=== PATIENT | female | born 1990 | race Caucasian/White ===

== ENCOUNTER 2017-01-13 19:41 | Emergency (ER) | payer OTHER ==
[~2017-01-13] VITALS: Ht 175.3 cm; Wt 63.6 kg
[2017-01-13 19:45] VITALS: TEMP 97.4
[2017-01-13 21:09] LABS: BASO # 0.1 (0.0-0.2); BASO % 0.4 % (0.0-2.0); EOS # 0.2 (0.0-0.7); EOS % 1.9 % (0-4.0); GRAN # 9.8 (1.4-6.5); HEMATOCRIT 39.4 % (37.0-47.0); HEMOGLOBIN 13.6 g/dl (12.5-16.0); LYMPH % 15.6 % (20.0-51.0); MEAN CELL VOLUME 88 fl (80.0-100.0); MEAN CORPUSCULAR HEMOGLOBIN 30 pg (27.0-31.0); MEAN CORPUSCULAR HGB CONC 35 g/dl (33.0-37.0); MEAN PLATELET VOLUME 9.8 fl (7.4-10.4); MONO # 0.6 (0.1-0.6); MONO % 4.5 % (1.7-9.3); PLATELET COUNT 283 K/mm3 (130-400); RED BLOOD COUNT 4.49 M/mm3 (4.10-5.30); REDCELL DISTRIBUTION WIDTH-CV 12.1 % (11.5-14.5); WHITE BLOOD COUNT 12.7 K/mm3 (4.8-10.8)
[2017-01-13 21:37] LABS: ADJUSTED CALCIUM 9.8 mg/dL (8.4-10.2); ALBUMIN 4.2 gm/dL (3.5-5.0); BILIRUBIN,TOTAL 0.7 mg/dL (0.0-1.0); CREATININE, serum 0.61 mg/dL (0.52-1.25); POTASSIUM 3.7 mmol/L (3.4-5.0); TOTAL PROTEIN 7.6 gm/dL (6.4-8.2)
[2017-01-13 21:57] LABS: PH 5 (5-8); URINE APPEARANCE Hazy; URINE BACTERIA Rare /hpf; URINE BILIRUBIN Negative (NEGATIVE); URINE BLOOD Negative (NEGATIVE); URINE COLOR Yellow; URINE GLUCOSE Negative (NEGATIVE); URINE KETONE Trace (NEGATIVE); URINE RBC 0-2 /hpf; URINE UROBILINOGEN Negative (NEGATIVE); URINE WBC 0-2 /hpf
[2017-01-13] MEDS ORDERED: ZOFRAN ODT4 MG PO (22:22)
[2017-01-13 22:58] VITALS: BP 113/63; PULSE 62
== END 2017-01-13 23:01 | disposition home or self-care (01) ==
LOC: COL.ER 19:41
PROVIDERS: Family Medicine
DX: K52.9 Noninfective gastroenteritis and colitis, unspecified (principal); Z90.49 Acquired absence of other specified parts of digestive tract; Z98.0 Intestinal bypass and anastomosis status
CPT/HCPCS: J1170; J2405; J7030; Q9967

== ENCOUNTER → 2017-02-19 | Outpatient (CLI) | payer OTHER ==
[~2017-02-19] MED LIST: ZOFRAN ODT4 MG PO
== END ==
LOC: COL.RAD 08:10
DX: N83.291 Other ovarian cyst, right side (principal)

== ENCOUNTER → 2017-08-02 | Outpatient (CLI) | payer OTHER | LOC: COL.VAS 13:34 | DX: R00.2 Palpitations (principal) ==

== ENCOUNTER 2023-02-14 09:55 | Inpatient (IN) | payer BC ==
[~2023-02-14] VITALS: Ht 175.3 cm; Wt 89.5 kg
[2023-02-14] VITALS (11 sets, daily range): BP systolic 110–122; BP diastolic 56–81; PULSE 62–110; TEMP 97.8–97.9
--- NOTE | 2023-02-14 10:30 | NUR ---
1000- Pt arrives on unit via wheelchair with hasband. Complaints of UCs every 3 mins and SROM at 0745. Pt in her own delivery gown, into bed, knee/chest per Pt comfort. Pt encouraged to roll onto back to place monitors and SVE. Pt agrees. 1004- EFM and TOCO on and tracing. 1008- SVE 9-/+1. Dr Jackson on unit but on phone call with Pt. ROMARIO May student updated to let MD know of Pt status and to come to bedside when off phone. 1010- Pt returns to knee/chest for comfort. This RN returns to bedside. Pt feeling pushy with UCs. Dr Jackson updated. 1020- MD at bedside with ROMARIO May student. Baron attempts IV start, able to obtain blood but would not flush. MD ok with IM [place] after delivery. Pt coached and encouraged to push with UCs, remains in knee/chest.
--- NOTE | 2023-02-14 10:45 | NUR ---
FHR tracing intermittently due to maternal position. MD remains at bedside evaluating tracing.
--- NOTE | 2023-02-14 11:15 | NUR ---
1047- Pt repositioned to RL, continues pushing in this position. MD remains at bedside, evaluates tracing. 1105- Pt repositioned to lithotomy position. Pt continues pushing.
--- NOTE | 2023-02-14 11:25 | NUR ---
FHR not tracing well, tracing intermittently, this RN attempts to reposition US in between pushing. Pt unblocked and feeling lots of pressure, pushing frequently. 1125- of viable female , to mother's abd, tended to by Mirta Eubanks, nursery RN. Cord clamped and cut after delay. Infant repositioned [id number] with mother. 1129- Spont delivery of placenta, Pitocin given IM, see EMAR. Fundus massaged by MD. Repair by MD, Pt very uncomfortable with repair but tolerated well. Pericare completed. Clean chux and ice pack to perineum. Pt [id number] with .
[2023-02-14] MEDS ORDERED: GLUCOPHAGE500 MG/TAB PO (12:37)
[2023-02-14] MEDS ORDERED: ZYRTEC ALLERGY10 MG PO (12:37)
[2023-02-14] MEDS ORDERED: PEPCID 20MG TAB20 MG PO (12:38)
[2023-02-14] MEDS ORDERED: PRENATAL TABLET PO (12:38)
[2023-02-14 13:05] LABS: BASO % 0.2 % (0.0-2.0); EOS % 0.2 % (0.0-4.0); GRAN # 7.8 K/mm3 (1.4-6.5); HEMOGLOBIN 10.8 g/dl (12.5-16.0); LYMPH # 1.5 K/mm3 (1.2-3.4); LYMPH % 14.9 % (20.0-51.0); MEAN CELL VOLUME 79 fl (80.0-100.0); MEAN CORPUSCULAR HEMOGLOBIN 25 pg (27-31); MEAN CORPUSCULAR HGB CONC 32 g/dl (33.0-37.0); MEAN PLATELET VOLUME 11.3 fl (7.4-10.4); MONO # 0.4 K/mm3 (0.1-0.6); MONO % 4.2 % (1.7-9.3); PLATELET COUNT 253 K/mm3 (130-400); RED BLOOD COUNT 4.25 M/mm3 (4.10-5.30); REDCELL DISTRIBUTION WIDTH-CV 14.6 % (11.5-14.5)
[2023-02-14 13:06] LABS: HEMATOCRIT 33.6 % (37.0-47.0)
--- NOTE | 2023-02-14 14:30 | NUR ---
1430- Pt ambulates to bathroom independently with this RN standby. Voids without difficulty. Pericare provided and explained. Pt ambulates to PP room, oriented to room. Call light within reach.
--- NOTE | 2023-02-14 18:25 | NUR ---
Report recieved. Resting in room at this time. Updated whiteboard adn reviewed POC. Questions invited and declined at this time.
[2023-02-14] MEDS ORDERED: MOTRIN 800800 MG/TAB PO (21:21)
[2023-02-15 06:05] LABS: HEMATOCRIT 27.8 % (37.0-47.0); HEMOGLOBIN 8.8 g/dl (12.5-16.0)
[2023-02-15 07:00] VITALS: BP 116/66; PULSE 69; TEMP 98.1
== END 2023-02-15 16:00 | disposition home or self-care (01) | DRG 807 ==
LOC: LDRO 09:55 → LDR 10:00 → OB 10:00
PROVIDERS: Obstetrics & Gynecology; ADMIT Obstetrics & Gynecology
PROC: 10E0XZZ Delivery of Products of Conception, External Approach (ICD-10-PCS; principal; 2023-02-14)
PROC: 0KQM0ZZ Repair Perineum Muscle, Open Approach (ICD-10-PCS; 2023-02-14)
DX: O48.0 Post-term pregnancy (principal); Z37.0 Single live birth; Z3A.40 40 weeks gestation of pregnancy; O99.284 Endocrine, nutritional and metabolic diseases complicating childbirth; E28.2 Polycystic ovarian syndrome; O70.1 Second degree perineal laceration during delivery
CPT/HCPCS: J2590